=== PATIENT | female | born 1960 | race Caucasian/White ===

== ENCOUNTER → 2023-12-08 13:34 | Outpatient (REF) | payer BC, SELFPAY | LOC: RAD 13:34 | PROVIDERS: ATTENDING PHYSICIAN Internal Medicine Rheumatology; FAMILY PHYSICIAN Internal Medicine | DX: M06.4 Inflammatory polyarthropathy (principal); M15.0 Primary generalized (osteo)arthritis; D86.9 Sarcoidosis, unspecified; J45.909 Unspecified asthma, uncomplicated; E66.9 Obesity, unspecified; R53.83 Other fatigue; Z20.5 Contact with and (suspected) exposure to viral hepatitis; Z20.6 Contact with and (suspected) exposure to human immunodeficiency virus [HIV]; Z79.899 Other long term (current) drug therapy; E55.9 Vitamin D deficiency, unspecified | CPT/HCPCS: 73130 ==

== ENCOUNTER → 2025-02-26 13:01 | Outpatient (REF) | payer BC, SELFPAY | LOC: RAD 13:01 | PROVIDERS: ATTENDING PHYSICIAN Internal Medicine | DX: Z13.820 Encounter for screening for osteoporosis (principal) | CPT/HCPCS: 77080 ==